=== PATIENT | male | born 1955 ===

== ENCOUNTER 2018-08-21 23:40 | Emergency (ER) | payer MEDICAID ==
[2018-08-21 23:40] VITALS: BMI 25.7
[2018-08-22] MEDS ORDERED: Sodium Chloride 0.9% 1,000 ML IV STA (01:31)
[2018-08-22 01:37] LABS: BASO % 0.6 % (0.0-2.0); EOS # 0.1 K/uL (0.0-0.7); EOS % 3.4 % (0.0-4.0); HEMOGLOBIN 8.9 g/dL (12.0-18.0); LYMPH # 1.4 K/uL (1.0-4.3); LYMPH % 34.7 % (20.0-40.0); MEAN CELL VOLUME 61.9 fl (80.0-94.0); MEAN CORPUSCULAR HEMOGLOBIN 19.1 pg (27.0-31.0); MEAN CORPUSCULAR HGB CONC 30.8 g/dL (33.0-37.0); MEAN PLATELET VOLUME 9.5 fl (7.2-11.7); MONO # 0.3 K/uL (0.0-0.8); MONO % 8.2 % (0.0-10.0); NEUT # 2.1 K/uL (1.8-7.0); NEUT % 53.1 % (50.0-75.0); NRBC % 0.2 % (0.0-0.0); PLATELET COUNT 211 K/uL (130-400); RBC 4.69 Mil/uL (4.40-5.90); RED CELL DISTRIBUTION WIDTH 20.8 % (11.5-14.5)
[2018-08-22 01:40] LABS: SQUAMOUS EPITHIAL 1 /hpf (0-5); URINE BILIRUBIN NEGATIVE (NEGATIVE); URINE BLOOD NEGATIVE (NEGATIVE); URINE CLARITY SLIGHTY-CLOUDY (Clear); URINE COLOR YELLOW (YELLOW); URINE GLUCOSE (UA) NEG (NEGATIVE); URINE LEUKOCYTE ESTERASE NEG Leu/uL (Negative); URINE PROTEIN 30 mg/dL (NEGATIVE); URINE UROBILINOGEN 0.2-1.0 mg/dL (0.2-1.0)
--- NOTE | 2018-08-22 01:45 | ED PDOC ---
HPI: Abdomen Time Seen by Provider: 08/22/18 00:29 Chief Complaint (Nursing): Abdominal Pain Chief Complaint (Provider): Abdominal Pain History Per: Patient Onset/Duration Of Symptoms: Days (x1) Associated Symptoms: Vomiting Additional Complaint(s): 63 y/o male with history of diabetes, hypercholesterolemia, hypertension, asthma, and CHF, presents to the ED complaining right sided abdominal pain onset earlier yesterday morning. Patient reports he has x2 episodes of associated vomiting. Denies diarrhea, urinary symptoms, or fever. Patient states he took Tramadol for the pain which was prescribed to him by his PMD x2 weeks ago. Past Medical History Reviewed: Historical Data, Nursing Documentation, Vital Signs Vital Signs: Last Vital Signs Temp 98.1 F 08/22/18 00:10 Pulse 70 08/22/18 00:10 Resp 18 08/22/18 00:10 BP 150/80 08/22/18 00:10 Pulse Ox 99 08/22/18 00:10 - Medical History PMH: Asthma, CHF, COPD, Depression, Diabetes, Hepatitis (C), HTN, Hypercholesterolemia Denies: Alzheimer's Disease, Crohn's Disease, Dementia, Diverticulitis, Gastritis, Gall Bladder Disease, HIV, Migraine, Multiple Sclerosis, Parkinson's Disease, Chronic Kidney Disease, Seizures, TIA - Surgical History Surgical History: Endoscopy, Hernia Repair - Family History Family History: States: Unknown Family Hx - Immunization History Hx Tetanus Toxoid Vaccination: Yes Hx Influenza Vaccination: Yes Hx Pneumococcal Vaccination: Yes - Home Medications Home Medications: Ambulatory Orders Medication Instructions Recorded Albuterol 0.083% [Albuterol 0.083% 3 ml IH .Q4-6H #100 vial 03/09/18 Inhal Barby (2.5 mg/3 ml) UD] Nebulizer Accessories [Reusable 1 each MC Q4 #1 kit 03/10/18 Nebulizer Kit] Albuterol Sulfate [Proair Hfa] 1 puff IH Q6 PRN #1 inh 04/21/18 Carvedilol [Coreg] 25 mg PO BID #60 tab 04/21/18 Furosemide [Lasix] 40 mg PO DAILY #30 tablet 04/21/18 Lisinopril [Zestril] 40 mg PO DAILY #30 tab 04/21/18 Potassium Chloride [K-Dur 20 mEq 20 meq PO DAILY 30 Days #30 tab 04/21/18 ER Tab] Rosuvastatin Calcium [Crestor] 10 mg PO HS #30 tab 04/21/18 hydrALAZINE [Apresoline] 50 mg PO TID 30 Days #150 tab 04/21/18 metFORMIN [glucOPHAGE] 500 mg PO BID #60 tab 04/21/18 Pantoprazole [Protonix EC Tab] 20 mg PO DAILY #30 ect 07/14/18 traMADol [Ultram] 50 mg PO BID PRN #12 tab 07/14/18 Naproxen 500 mg PO BID 5 Days #10 tablet 08/06/18 amLODIPine [Norvasc] 5 mg PO DAILY #14 tab 08/07/18 Famotidine [Pepcid] 20 mg PO BID #20 tab 08/18/18 traMADol [Ultram] 50 mg PO Q6 #20 tab 08/18/18 - Allergies Allergies/Adverse Reactions: Allergies Allergy/AdvReac Type Severity Reaction Status Date / Time No Known Allergies Allergy Verified 08/22/18 00:10 Review of Systems ROS Statement: Except As Marked, All Systems Reviewed And Found Negative Constitutional: Negative for: Fever Gastrointestinal: Positive for: Vomiting, Abdominal Pain. Negative for: Diarrhea Genitourinary Male: Negative for: Dysuria, Frequency, Incontinence Physical Exam - Reviewed Nursing Documentation Reviewed: Yes Vital Signs Reviewed: Yes - Physical Exam Appears: Positive for: Uncomfortable, In Acute Distress (mild) Head Exam: Positive for: ATRAUMATIC, NORMAL INSPECTION, NORMOCEPHALIC Skin: Positive for: Normal Color, Warm, DRY Eye Exam: Positive for: EOMI, Normal appearance, PERRL Neck: Positive for: Normal, Painless ROM Cardiovascular/Chest: Positive for: Regular Rate, Rhythm. Negative for: Murmur Respiratory: Positive for: Normal Breath Sounds. Negative for: Respiratory Distress Gastrointestinal/Abdominal: Positive for: Tenderness (RLQ) Neurologic/Psych: Positive for: Alert, Oriented. Negative for: Motor/Sensory Deficits - Laboratory Results Result Diagrams: 08/22/18 01:30 08/22/18 01:30 Lab Results: Urine Color Yellow (YELLOW) 08/22/18 01:30 Urine Clarity Slighty-cloudy (Clear) 08/22/18 01:30 Urine pH 7.0 (5.0-8.0) 08/22/18 01:30 Ur Specific [place] 1.005 (1.003-1.030) 08/22/18 01:30 Urine Protein 30 mg/dL (NEGATIVE) 08/22/18 01:30 Urine Glucose (UA) Neg mg/dL (NEGATIVE) 08/22/18 01:30 Urine Ketones Negative mg/dL (NEGATIVE) 08/22/18 01:30 Urine Blood Negative (NEGATIVE) 08/22/18 01:30 Urine Nitrate Negative (NEGATIVE) 08/22/18 01:30 Urine Bilirubin Negative (NEGATIVE) 08/22/18 01:30 Urine Urobilinogen 0.2-1.0 mg/dL (0.2-1.0) 08/22/18 01:30 Ur Leukocyte Esterase Neg Stanislav/uL (Negative) 08/22/18 01:30 Urine RBC (Auto) 2 /hpf (0-3) 08/22/18 01:30 Urine Microscopic WBC < 1 /hpf (0-5) 08/22/18 01:30 Ur Squamous Epith Cells 1 /hpf (0-5) 08/22/18 01:30 - ECG O2 Sat by Pulse Oximetry: 99 (RA) Pulse Ox Interpretation: Normal Medical Decision Making Medical Decision Making: Time: 00:49 Initial Impression: Right flank and RLQ pain Differential diagnosis includes acute appendicitis, renal colic, UTI Initial Plan: * CT Abd Pelvis * CMP * Lipase * ED Urine * CBC w/ diff * UA 02:56 CT Abd Pelvis COMMENTS: Moderate cardiomegaly. Bilateral basilar peribronchial interstitial thickening suggestive of bronchitis. Bilateral basilar atelectatic pulmonary changes. Dilated suprahepatic IVC suggestive of dysfunction of the right cardiac cavities. Moderate hepatomegaly. Mild diffuse thickening of the gallbladder. Mild pericholecystic free fluid. Moderate amount of fecal residue in the large bowels. Moderate diffuse spondylosis. Mild prostatomegaly. There is no intra or extrahepatic biliary ductal dilatation. The spleen is normal. The gallbladder is within normal limits. The pancreas is of normal contour and attenuation characteristics. There is no evidence of adrenal mass. 1.5 cm right renal simple cyst. Both kidneys demonstrate prompt and equal nephrograms. The kidneys are normal in size, shape and configuration. There is no evidence of renal or ureteral mass. No renal or ureteral calculi are identified. There is no hydroureter or hydronephrosis. No evidence for appendicitis. There is no bowel wall thickening. No evidence for small or large bowel obstruction. There is no evidence of abdominal ascites or lymphadenopathy. There is no evidence of intrinsic or extrinsic bladder mass. There is no pelvic ascites or lymphadenopathy. Images of the lung bases show no evidence of pleural or parenchymal mass. There are no pleural effusions. The bony structures are free of lytic or blastic lesions. IMPRESSION: Moderate cardiomegaly. Bilateral basilar peribronchial interstitial thickening suggestive of bronchitis. Bilateral basilar atelectatic pulmonary changes. Dilated suprahepatic IVC suggestive of dysfunction of the right cardiac cavitie s. Moderate hepatomegaly. Mild diffuse thickening of the gallbladder. Mild pericholecystic free fluid. Moderate amount of fecal residue in the large bowels. Moderate diffuse spondylosis. Mild prostatomegaly. Scribe Attestation: Documented by Chema Martinez acting as a scribe for Yosef Bhardwaj MD Provider Scribe Attestation: All medical record entries made by the Scribe were at my direction and personally dictated by me. I have reviewed the chart and agree that the record accurately reflects my personal performance of the history, physical exam, medical decision making, and the department course for this patient. I have also personally directed, reviewed, and agree with the discharge instructions and disposition. Disposition - Clinical Impression Clinical Impression: Cirrhosis, Ascites, Gallbladder disease, Abdominal pain - Patient ED Disposition Is Patient to be Admitted: No Doctor Will See Patient In The: Office Counseled Patient/Family Regarding: Studies Performed, Diagnosis, Need For Followup - Disposition Referrals: Raoul Tiwari MD, PhD [Staff Provider] - Ezekiel Mckoy MD [Staff Provider] - Disposition: Routine/Home Disposition Time: 03:36 Condition: GOOD Additional Instructions: ARA MORENO, thank you for letting us take care of you today. Your provider was Yosef Bhardwaj MD and you were treated for RT SIDE PAIN. The emergency medical care you received today was directed at your acute symptoms. If you were prescribed any medication, please fill it and take as directed. It may take several days for your symptoms to resolve. Return to the Emergency Department if your symptoms worsen, do not improve, or if you have any other problems. Please contact your doctor or call one of the physicians/clinics you have been referred to that are listed on the Patient Visit Information form that is included in your discharge packet. Bring any paperwork you were given at discharge with you along with any medications you are taking to your follow up visit. Our treatment cannot replace ongoing medical care by a primary care nayely iqbal outside of the emergency department. Thank you for allowing the [facility] team to be part of your care today. If you had an X-Ray or CT scan: A Radiologist will review the ED reading if any change in treatment is needed we will contact you. If you had a blood, urine, or wound culture: It will take several days for the results, if any change in treatment is needed we will contact you. If you had an STI test: It will take 48 hours for the results. Please call after 1 week if you have not heard back. Instructions: Cirrhosis, Stomach Ache and Stomach Upset
[2018-08-22 01:46] LABS: ALBUMIN 3.6 g/dL (3.5-5.0); BLOOD UREA NITROGEN 26 mg/dl (9-20); CALCIUM 8.8 mg/dL (8.4-10.2); GFR NON-AFRICAN AMERICAN 56; LIPASE 87 U/L (23-300)
[2018-08-22 01:48] LABS: ALT/SGPT 37 U/L (21-72); AST/SGOT 57 U/L (17-59)
[2018-08-22] MEDS ORDERED: Sodium Chloride 0.9% 50 ML IV ONE (02:10)
[2018-08-22] MEDS ORDERED: Iohexol 300 100 ML IJ ONE (02:10)
[2018-08-22 02:38] LABS: BANDS 2 % (0-2); EOSINOPHIL 5 % (0-7); LYMPHOCYTE 29 % (20-50); MONOCYTE 10 % (0-10); NEUTROPHIL 54 % (42-75); TOTAL CELLS COUNTED 100
[2018-08-22 02:39] LABS: ACANTHOCYTES SLIGHT; ANISOCYTOSIS SLIGHT; HYPOCHROMIC SLIGHT; LARGE PLATELETS PRESENT; MICROCYTOSIS SLIGHT; OVALOCYTES SLIGHT; PLATELET ESTIMATE NORMAL (NORMAL); POIKILOCYTOSIS SLIGHT; SCHISTOCYTES SLIGHT; TARGET CELLS SLIGHT; TEARDROP CELLS SLIGHT
[2018-08-22 03:43] VITALS: BP 146/78; PULSE 74; RESP 15; TEMP 98.3; O2SAT 98
--- NOTE | 2018-08-22 17:13 | CT ---
Date of service: 08/22/2018 PROCEDURE: CT Abdomen and Pelvis with contrast HISTORY: RLQ pain Right flank pain COMPARISON: None. TECHNIQUE: Contiguous helical/transaxial sections of the abdomen pelvis performed in standard fashion following intravenous injection of approximately 90 cc Omnipaque 300 contrast material. Additional 2D sagittal and coronal reformats generated. Radiation dose: Total exam DLP = 373.05 mGy-cm. This CT exam was performed using one or more of the following dose reduction techniques: Automated exposure control, adjustment of the mA and/or kV according to patient size, and/or use of iterative reconstruction technique. FINDINGS: LOWER THORAX: Heart is markedly enlarged. No significant pericardial effusion however thin pericardial calcifications suggests prior sequela of pericardial effusion or pericarditis. Clinical correlation with history recommended. There appears to be some minor nodular pleural-based densities possibly representing chronic pleural thickening or pleural based plaques right lung base.. Mild peribronchial thickening. No effusion or basilar pneumothorax. There is a small hiatal hernia with slight wall thickening of the distal esophagus likely due to protrusion gastric mucosa. Esophagitis not excluded. LIVER: Liver exhibits relatively normal size. No obvious hepatic masses or collections. Portal and splenic veins opacified.. The IVC appears the dilated. Rule out the right heart dysfunction. There is perihepatic ascites.. GALLBLADDER AND BILE DUCTS: Gallbladder is physiologically distended. No intraluminal gallbladder calculi.. There is fluid seen surrounding the gallbladder likely representing extension of perihepatic ascites. The no definitive gallbladder wall thickening. PANCREAS: Pancreas appears atrophic and fatty replaced. SPLEEN: There is a coarse calcifications seen along the superolateral surface of the the spleen possibly representing the sequela of old trauma, ischemia or infection. Clinical correlation is recommended ADRENALS: Nodular enlargement of both adrenal glands. KIDNEYS AND URETERS: Kidneys demonstrate symmetric nephrograms. No evidence of nephrolithiasis or hydronephrosis. There is a partially exophytic approximately 2.1 cm cyst medial aspect mid to lower pole right kidney.. Mild perinephric infiltration changes present left greater than right. VASCULATURE: Unremarkable. No aortic aneurysm. Minor aortic atherosclerotic calcification or mural plaque present. BOWEL: Evaluation of the bowel is limited due to the lack of oral contrast material. Stomach is distended with food debris liquid and air. Mild wall thickening of the distal stomach and antrum possibly due to peristaltic wave however possibility of a gastritis should be considered. Apparent anastomosis involving loop of small bowel in the right mid abdomen adjacent to the superior aspect of the ascending colon. Clinical correlation with surgical history recommended... There is localized dilatation this segment and adjacent section of bowel nonspecific. The remaining visualized loops of small bowel exhibit normal contour and caliber. No evidence to suggest acute mechanical small bowel obstruction. Moderate amount of stool is seen within the at cecum, ascending and transverse colon. Lesser amount of stool seen throughout the remaining colon. Findings suggest fecal retention/constipation. No definitive evidence of mural thickening of the colon so far as can be seen. APPENDIX: Appendix not positively identified however no obvious inflammatory changes right lower quadrant of the abdomen. PERITONEUM: Unremarkable. No free fluid. No free air. LYMPH NODES: Unremarkable. No enlarged lymph nodes. BLADDER: Urinary bladder appears incompletely distended which in part accounts for thick-walled appearance. Muscular hypertrophy presumably contributes however possibility of cystitis or other intrinsic/invasive wall lesion not excluded. Clinical correlation with urinalysis is recommended. REPRODUCTIVE: Prostate gland measures approximately 5.1 cm in transverse dimension. BONES: Minor chronic anterior wedge deformities of the L3, L4 and L5 segments. Significant degenerative spondylosis L3-L4 level. Minor multilevel degenerative spondylosis at the lower thoracic and remaining lumbar levels. OTHER FINDINGS: None. IMPRESSION: Cardiomegaly. Pleural based nodular densities or plaque formation right lung base. Clinical correlation recommended. Dilatation of the intrahepatic IVC suggesting right heart dysfunction. Clinical correlation recommended. Small amount of perihepatic ascites. Gallbladder is distended with the 2 wall edema or pericholecystic fluid possibly extension of perihepatic ascites. Clinical correlation recommended. There are coarse calcifications seen along the superolateral splenic surface possibly related to old trauma infarct or infection. Clinical correlation recommended. Nodular adrenal gland enlargement. Right renal cyst. There is mild wall thickening of the distal stomach and pylorus; rule out gastritis. See above discussion for additional details and findings. Findings consistent with constipation.
== END 2018-08-22 03:45 | disposition home or self-care (01) ==
LOC: H.ER 23:40
DX: K74.60 Unspecified cirrhosis of liver (principal); R18.8 Other ascites; R10.9 Unspecified abdominal pain; J44.9 Chronic obstructive pulmonary disease, unspecified; N40.0 Benign prostatic hyperplasia without lower urinary tract symptoms; Z79.84 Long term (current) use of oral hypoglycemic drugs; E11.9 Type 2 diabetes mellitus without complications; Z86.59 Personal history of other mental and behavioral disorders; I11.0 Hypertensive heart disease with heart failure
CPT/HCPCS: 74177; 80053; 81003; 83690; 85025; 96374; 99283; J1885; J2405; J7030; Q9967